=== PATIENT | female | born 1970 | race Caucasian/White ===

== ENCOUNTER 2017-09-25 17:35 | Emergency (ER) | payer BC ==
[2017-09-25] MEDS ORDERED: Ketorolac 10 MG Tab PO ONE (17:36)
[2017-09-25 17:44] VITALS: BP 117/58
--- NOTE | 2017-09-25 18:31 | EDM.PDOC ---
ED HPI GENERAL MEDICAL PROBLEM - General Chief Complaint: Lower Extremity Injury/Pain Stated Complaint: LEFT LEG PAIN Time Seen by Provider: 09/25/17 18:15 - History of Present Illness INITIAL COMMENTS - FREE TEXT/NARRATIVE: Dl is a 47-year-old female who presents to the emergency department with complaints of posterior left mid thigh pain. She reports the pain started yesterday afternoon. She describes it as a dull constant ache, radiating upwards toward her hip and downwards toward her knee. She reports that when she applies any pressure or sits on something it is a sharp pain, rated a 9/10. She reports she has been trying ibuprofen and Tylenol for the pain without relief. She denies any injury to the affected area. She denies any redness or swelling. Reports she has maybe had a low grade temperature of 99 deg F. She is afebrile in ED. Denies any chills. She has no additional complaints. Onset Date: 09/24/17 Duration: Intermittent Location: Reports: Lower Extremity, Left Quality: Reports: Ache, Sharp Worsens with: Reports: Other (weight bearing & palpation) Associated Symptoms: Denies: Confusion, Chest Pain, Cough, cough w sputum, Diaphoresis, Fever/Chills, Headaches, Loss of Appetite, Malaise, Nausea/Vomiting , Rash, Seizure, Shortness of Breath, Syncope, Weakness Treatments ADMINISTRATOR OF HOME HEALTH: Reports: Acetaminophen, NSAIDS Left Upper Leg Pain Score (Numeric/FACES): 8 - Related Data Allergies Allergy/AdvReac Type Severity Reaction Status Date / Time codeine Allergy Itching Verified 09/25/17 17:44 GREEN BEANS Allergy Rash Uncoded 09/25/17 17:44 Home Meds: Home Meds Ibuprofen 600 mg PO Q6H PRN 12/13/14 [History] Cyanocobalamin (Vitamin B12) [Vitamin B13] 1,500 mcg PO BID PRN 09/25/17 [ History] Diazepam [Valium] 5 mg PO Q6H PRN 09/25/17 [History] Levothyroxine Sodium [Levo-T] 100 mcg PO DAILY 09/25/17 [History] Past Medical History Gastrointestinal History: Reports: Diverticulosis - Past Surgical History GI Surgical History: Reports: Cholecystectomy, Hernia, Abdominal Female Surgical History: Reports: Hysterectomy Endocrine Surgical History: Reports: Thyroidectomy Social & Family History - Tobacco Use Smoking Status *Q: Current Every Day Smoker Years of Tobacco use: 30 Packs/Tins Daily: 1 - Caffeine Use Caffeine Use: Reports: Coffee - Recreational Drug Use Recreational Drug Use: No Review of Systems - Review of Systems Review Of Systems: ROS reveals no pertinent complaints other than HPI. ED EXAM, GENERAL - Physical Exam Exam: See Below Exam Limited By: No Limitations General Appearance: Alert, WD/WN, No Apparent Distress Peripheral Pulses: 2+: Popliteal (L), Dorsalis Pedis (L) Extremities: Normal Inspection, Normal Range of Motion, Non-Tender, No Pedal Edema, Normal Capillary Refill, Leg Pain. No: Joint Swelling, Limited Range of Motion, Increased Warmth, Redness Neurological: Alert, Oriented, CN II-XII Intact, Normal Cognition, Normal Gait, Normal Reflexes, No Motor/Sensory Deficits Psychiatric: Anxious Skin Exam: Warm, Dry, Intact, Normal Color, No Rash Course - Vital Signs Last Recorded V/S: Last Vital Signs Temp 97.2 F 09/25/17 17:40 Pulse 85 09/25/17 17:40 Resp 16 09/25/17 17:40 BP 117/58 L 09/25/17 17:40 Pulse Ox 99 09/25/17 17:40 - Orders/Labs/Meds Orders: Active Orders 24 hr Category Date Time Status Femur Min 2V Lt [CR] Stat Exams 09/25/17 17:49 Taken Meds: Medications Discontinued Medications Generic Name Dose Route Start Last Admin Trade Name Sourav PRN Reason Stop Dose Admin Ketorolac Tromethamine 2 packet 09/25/17 18:26 09/25/17 18:37 Take Home: Ketorolac 10 Mg, 4 Tab Pack PO 09/25/17 18:27 2 packet ONETIME ONE Administration Ketorolac Tromethamine 60 mg 09/25/17 18:30 09/25/17 18:37 Toradol IM 09/25/17 18:31 60 mg ONETIME ONE Administration - Re-Assessments/Exams Free Text/Narrative Re-Assessment/Exam: Xray negative. Discussed with patient that xray and exam are normal. Discussed that I would like to try and treat her pain and see if it improves. She then gets angry and states "this is why I don't like doctors, you just tell me nothing is wrong and tell me to go home and take Tylenol and ibuprofen." I discussed with her that there are no signs of infection etc. and we could do lab work to confirm this. She goes on to state that the labs are always normal so there's no point. Departure - Departure Time of Disposition: 18:28 Disposition: Home, Self-Care 01 Condition: Good Clinical Impression: Left leg pain - Discharge Information *PRESCRIPTION DRUG MONITORING PROGRAM REVIEWED*: No *COPY OF PRESCRIPTION DRUG MONITORING REPORT IN PATIENT HANNAH: No Referrals: PCP,None [Primary Care Provider] - Forms: ED Department Discharge Additional Instructions: Alternate ice and heat to affected area as needed for comfort Biofreeze to affected area Toradol every 8 hours as needed for pain May alternate with 1000 mg Tylenol Q6 hours Follow up if symptoms worsen, any redness appears or pain does not improve by Thursday - My Orders Last 24 Hours: My Active Orders 09/25/17 17:49 Femur Min 2V Lt [CR] Stat - Assessment/Plan Last 24 Hours: My Active Orders 09/25/17 17:49 Femur Min 2V Lt [CR] Stat
[2017-09-25] MEDS: Ketorolac 60 MG/2 ML SDV IM ONE (18:37)
[2017-09-25] MEDS: Take Home: Ketorolac 10 MG Tab, 4 Tab Pack PO ONE (18:37)
== END 2017-09-25 18:55 | disposition home or self-care (01) ==
LOC: CC.ED 17:35
DX: M79.652 Pain in left thigh (principal); F17.210 Nicotine dependence, cigarettes, uncomplicated; Z88.5 Allergy status to narcotic agent; Z79.899 Other long term (current) drug therapy
CPT/HCPCS: 96372; 99283; A9270-GY; J1885

== ENCOUNTER 2022-01-02 16:47 | Emergency (ER) | payer BC ==
[2022-01-02 17:19] VITALS: BP 106/60; PULSE 116
[2022-01-02] MEDS: Ondansetron 4 MG/2 ML SDV IVPUSH ONE (17:47)
[2022-01-02] MEDS: Sodium Chloride 0.9% 1,000 ML IV ONE (17:47)
[2022-01-02] MEDS: Ketorolac 30 MG/ML SDV IVPUSH ONE (18:26)
[2022-01-02] MEDS: cefTRIAXone 1 GM Vial IVPUSH ONE (18:26)
[2022-01-02] MEDS: Take Home: Ciprofloxacin 500 MG Tab, 2 Tab Pack PO ONE (19:26)
[2022-01-02] MEDS: Take Home: Ondansetron 4 MG Tab.DIS, 2 Tab Pack PO ONE (19:26)
== END 2022-01-02 19:37 | disposition home or self-care (01) ==
LOC: CC.ED 16:47
DX: N12 Tubulo-interstitial nephritis, not specified as acute or chronic (principal); N39.0 Urinary tract infection, site not specified; F17.210 Nicotine dependence, cigarettes, uncomplicated; Z79.899 Other long term (current) drug therapy; Z88.5 Allergy status to narcotic agent; Z91.018 Allergy to other foods
CPT/HCPCS: 36415; 80048; 85025; 96361; 96374; 96375; 99284; 99284-25; A9270-GY; J0696; J1885; J2405; J7030

== ENCOUNTER 2024-01-26 10:22 | Emergency (ER) | payer BC ==
[2024-01-26 11:02] LABS: BASOPHILS ABSOLUTE AUTO 0.07 10^3/uL (0.00-0.50); BASOPHILS PERCENT AUTO 1.1 % (0-1); EOSINOPHILS ABSOLUTE AUTO 0.08 10^3/uL (0.00-1.50); EOSINOPHILS PERCENT AUTO 1.2 % (0-6); HEMATOCRIT 38.2 % (37.0-47.0); HEMOGLOBIN 12.8 g/dL (12.0-16.0); LYMPHOCYTES ABSOLUTE AUTO 2.43 10^3/uL (0.60-5.00); LYMPHOCYTES PERCENT AUTO 37.9 % (24-44); MEAN CORPUSCULAR HEMOGLOBIN 31.8 pg (27.0-32.0); MEAN CORPUSCULAR HGB CONC 33.5 g/dL (32.0-36.0); MONOCYTES ABSOLUTE AUTO 0.53 10^3/uL (0.00-1.50); MONOCYTES PERCENT AUTO 8.3 % (0-10); NEUTROPHILS ABSOLUTE AUTO 3.31 x10^3/uL (1.80-8.00); NEUTROPHILS PERCENT AUTO 51.5 % (41-71); PLATELET COUNT,PLT 220 10^3/uL (150-400); RED BLOOD CELL COUNT 4.02 x10^6/uL (4.00-5.50); WHITE BLOOD CELL COUNT,WBC 6.4 10^3/uL (4.0-11.0)
[2024-01-26 11:15] LABS: BILIRUBIN TOTAL 0.4 mg/dL (0.0-1.0); CALCIUM 9.3 mg/dL (8.4-10.1); CREATININE 0.7 mg/dL (0.6-1.0); EST CRCL DRUG DOSING (CG) 69.33 mL/min; MAGNESIUM 2.1 mg/dL (1.8-2.4); PROTEIN TOTAL,TP 6.7 g/dL (6.4-8.2)
[2024-01-26 11:16] LABS: INR 0.97 (0.92-1.18); PROTHROMBIN TIME 10.2 SEC (9.3-11.3); PTT,PARTIAL THROMBOPLSTIN TIME 26.3 SEC (20.0-30.0)
[2024-01-26 11:18] LABS: APPEARANCE,URINE CLEAR (CLEAR); BILIRUBIN,URINE NEGATIVE (NEGATIVE); COLOR,URINE LIGHT YELLOW (YELLOW); GLUCOSE,URINE NEGATIVE (NEGATIVE); KETONES,URINE NEGATIVE (NEGATIVE); LEUKOCYTE ESTERASE,URINE NEGATIVE (NEGATIVE); NITRITE,URINE NEGATIVE (NEGATIVE); OCCULT BLOOD,URINE TRACE-INTACT (NEGATIVE); PH,URINE 6.5 (4.5-8.0); PROTEIN,URINE NEGATIVE (NEGATIVE); UROBILINOGEN,URINE 0.2 EU/dL (0.2-1.0)
[2024-01-26 11:30] VITALS: BP 108/79; PULSE 82
[2024-01-26 11:32] LABS: BACTERIA,URINE NOT SEEN /HPF (NOT SEEN); RBC,URINE 0-5 /HPF (0-5); SQUAMOUS EPITHELIAL CELLS,UR FEW /HPF (NOT SEEN); WBC,URINE NOT SEEN /HPF (0-5)
[2024-01-26] MEDS: Ketorolac 30 MG/ML SDV IM ONE (12:01)
== END 2024-01-26 12:09 | disposition home or self-care (01) ==
LOC: CC.ED 10:22
DX: R07.89 Other chest pain (principal); F17.210 Nicotine dependence, cigarettes, uncomplicated; Z90.49 Acquired absence of other specified parts of digestive tract; Z90.710 Acquired absence of both cervix and uterus; Z88.5 Allergy status to narcotic agent; Z91.018 Allergy to other foods; Z79.890 Hormone replacement therapy; Z79.891 Long term (current) use of opiate analgesic; Z79.899 Other long term (current) drug therapy
CPT/HCPCS: 36415; 71046; 80053; 81001; 82550; 83615; 83690; 83735; 84484; 85025; 85610; 85730; 93005; 96372; 99285; J1885